=== PATIENT | female | born 1960 | race Caucasian/White ===

== ENCOUNTER 2019-05-14 18:38 | Emergency (ER) | payer SELFPAY ==
[2019-05-14 19:02] VITALS: BP 133/81
[2019-05-14] MEDS ORDERED: Tetracaine 0.5% OPTH.SOL 4 ML* 1 DROP BTL BOTH EYES ONE (19:10)
[2019-05-14] MEDS ORDERED: Fluorescein Sodium TOPICAL* 1 MG TEST STRIP OPHTHALMIC ONE (19:10)
--- NOTE | 2019-05-14 19:48 | UC ---
Eye Complaint HPI - HPI Summary HPI Summary: C/O FB right eye this evening. Tried to rub the eye to clear the FB. Feels like there is still something in it. - History of Current Complaint Chief Complaint: UCEye Stated Complaint: RIGHT EYE CONCERN Hx Obtained From: Patient Onset/Duration: Sudden Onset, Lasting Hours - 2, Still Present Severity Initially: Severe Severity Currently: Severe Pain Intensity: 9 Character: Foreign Body Sensation Aggravating Factor(s): Light Alleviating Factor(s): Darkness Associated Signs And Symptoms: Positive: Photophobia, Drainage (Clear) - Allergies/Home Medications Allergies/Adverse Reactions: Allergies Allergy/AdvReac Type Severity Reaction Status Date / Time keflex or cipro Allergy weakness Uncoded 05/14/19 19:05 and joint aches Home Medications: Home Medications Dm Vitamins 1 dose PO DAILY 05/14/19 [History Confirmed 05/14/19] Levothyroxine TAB* [Synthroid 125 MCG TAB*] 125 mcg PO DAILY 05/14/19 [History Confirmed 05/14/19] Novolin 70/30 50 units SUBCUT QPM 05/14/19 [History Confirmed 05/14/19] Otc Eye Rinse 1 dose RIGHT EYE ONCE PRN 05/14/19 [History Confirmed 05/14/19] PMH/Surg Hx/FS Hx/Imm Hx Endocrine History: Diabetes - Surgical History Surgical History: Yes Surgery Procedure, Year, and Place: c-sect x 5, cholecystectomy, lumbar - Family History Known Family History: Positive: Diabetes - Social History Occupation: Disabled Lives: With Family Alcohol Use: None Substance Use Type: None Smoking Status (MU): Former Smoker When Did the Patient Quit Smoking/Using Tobacco: 1979 - Immunization History Most Recent Tetanus Shot: 2012 Review of Systems All Other Systems Reviewed And Are Negative: Yes Eyes: Positive: Drainage, Eye Redness, Photophobia Respiratory: Positive: Cough - has been coughing x 2 months since after a cold Physical Exam Triage Information Reviewed: Yes Appearance: Well-Appearing, Pain Distress - with eye pain, Obese Vital Signs: Initial Vital Signs Temp 98.9 F 05/14/19 18:55 Pulse 80 05/14/19 18:55 Resp 20 05/14/19 18:55 BP 133/81 05/14/19 18:55 Pulse Ox 97 05/14/19 18:55 Eyes: Positive: Conjunctiva Inflamed - OD, Other: - lid flipped after tetracaine. No FB seen. Flourescein stain positive lower inner cornea. ENT: Positive: Pharynx normal, TMs normal Neck exam: Normal Respiratory: Positive: Wheezing - expiratory wheeze with cough Cardiovascular Exam: Normal Musculoskeletal Exam: Normal Neurological Exam: Normal Psychological Exam: Normal Skin Exam: Normal Eye Complaint Course/Dx - Differential Dx/Diagnosis Differential Diagnosis/HQI/PQRI: Conjunctivitis, Corneal Abrasion, Foreign Body Provider Diagnosis: Right corneal abrasion, Mild persistent asthma Discharge ED - Sign-Out/Discharge Documenting (check all that apply): Patient Departure All imaging exams completed and their final reports reviewed: No Studies - Discharge Plan Condition: Stable Disposition: HOME Prescriptions: Montelukast Sodium TAB* [Singulair 10 MG TAB*] 10 mg PO BEDTIME #30 tab Patient Education Materials: Corneal Abrasion (ED), Asthma (ED), Montelukast ( By mouth) Referrals: Reji Wyatt MD [Primary Care Provider] - - Billing Disposition and Condition Condition: STABLE Disposition: Home
[2019-05-14] MEDS ORDERED: Erythromycin OPTH OINT* APPLIC OINT RIGHT EYE ONE (19:49)
== END 2019-05-14 20:12 | disposition home or self-care (01) ==
LOC: UCCORT 18:38
DX: S05.01XA Injury of conjunctiva and corneal abrasion without foreign body, right eye, initial encounter (principal); X58.XXXA Exposure to other specified factors, initial encounter; Y92.9 Unspecified place or not applicable; J45.30 Mild persistent asthma, uncomplicated; E11.9 Type 2 diabetes mellitus without complications; Z88.1 Allergy status to other antibiotic agents; Z87.891 Personal history of nicotine dependence
CPT/HCPCS: 99203; A9270-GY; G0463